=== PATIENT | male | born 1955 | race Caucasian/White ===

== ENCOUNTER → 2018-06-24 | Day surgery (SDC) | payer BC ==
[~2018-06-24] MED LIST: AMLODIPINE BESY10 MG PO; ASPIRIN325 MG PO; BYSTOLIC10 MG PO; FENTANYL CITRATE/PF 100MCG/2 ML INJ ONE; GLUCAGON FOR INJ 1 MG VIAL ONE; HYDROCHLOROTHIA25 MG PO; HYOSCYAMINE SULFATE 0.5 MG/ML INJ ONE; LEVOTHYROXINE; METFORMIN HCL500 MG PO; MIDAZOLAM HCL 5 MG/ML VIAL ONE; MONTELUKAST SOD10 MG PO; PROPOFOL IV EMULSION 10 MG/ML 50 ML VIAL ONE; SIMVASTATIN20 MG PO
--- NOTE | 2018-06-24 23:53 | Operative Report ---
DATE OF PROCEDURE: June 24, 2018 REFERRING PHYSICIAN: Dr. Hiren Chen. PROCEDURES PERFORMED 1. Esophagogastroduodenoscopy with biopsies. 2. Colonoscopy. INDICATION FOR ESOPHAGOGASTRODUODENOSCOPY: Heartburn and indigestion. INDICATIONS FOR COLONOSCOPY: Colorectal cancer screening. MEDICATIONS: Patient was done under MAC. Please see anesthesiologist's note. ESOPHAGOGASTRODUODENOSCOPY: With the patient in the left lateral decubitus position, the flexible fiberoptic Olympus gastroscope was introduced into the esophagus under direct visualization without any difficulty. There was some patchy erythema noted in the distal esophagus. An area of focal nodularity was noted at the GE junction that was biopsied. The scope was then advanced with ease into the stomach traversing a small sliding hiatal hernia. Mucosa overlying the antrum and the body revealed some patchy erythema and low-grade to moderate edema and biopsies were obtained and sent to stain for H. pylori. The pylorus was of normal contour and shape. It was intubated with ease and the scope was advanced all the way to the 2nd portion of the duodenum. The scope was then withdrawn slowly. Mucosa overlying the proximal 2nd portion appeared to be within normal limits. An approximately 6-mm ulcer was noted in the duodenal bulb with heaped up margins without active bleeding or stigmata of recent hemorrhage. The scope was then withdrawn back into the stomach and retroflexed. Mucosa overlying the fundus and cardia appeared to be within normal limits. The scope was then straightened out and was subsequently withdrawn. Patient tolerated the procedure well. IMPRESSION 1. Mild distal esophagitis. 2. Focal nodularity gastroesophageal junction, biopsied. 3. Small sliding hiatal hernia. 4. Gastritis, biopsied. Biopsies sent to stain for H. Pylori. 5. Duodenal bulb ulcer approximately 6 mm in size with heaped up margins without active bleeding or stigmata of recent hemorrhage. PLAN: Follow up histology. Initiate Protonix 40 mg 1 p.o. q.a.m. a.c. COLONOSCOPY: The patient was then turned around, and after adequate lubrication of the anal canal, a flexible fiberoptic Olympus colonoscope was inserted into the rectum with ease and advanced all the way to the cecum. The prep overall of the cecum and the proximal ascending colon was suboptimally prepped with retained stools in the colon. The scope was then withdrawn slowly whatever was visualized having mucosa overlying the cecum and the ascending colon as well as the transverse, descending, sigmoid, and rectum appeared to be within normal limits. The scope was then retroflexed into the distal rectum and small internal hemorrhoids were noted, none of which was actively bleeding. The scope was then straightened out and was subsequently withdrawn. The patient tolerated the procedure well. IMPRESSION 1. Suboptimal prep cecum and proximal ascending colon. 2. Internal hemorrhoids, none actively bleeding. PLAN: Initiate high-fiber, low-fat diet. Initiate high-fiber supplement. The patient might benefit from a followup colonoscopy in 5-10 years. Job#: [id number] RTY cc:Hiren Chen DO
== END | disposition home or self-care (01) ==
LOC: OR 11:50
PROVIDERS: ATTEND Internal Medicine Gastroenterology
DX: K29.70 Gastritis, unspecified, without bleeding (principal); K26.9 Duodenal ulcer, unspecified as acute or chronic, without hemorrhage or perforation; K22.70 Barrett's esophagus without dysplasia; K20.9 Esophagitis, unspecified; K59.00 Constipation, unspecified; K44.9 Diaphragmatic hernia without obstruction or gangrene; K64.8 Other hemorrhoids; I10 Essential (primary) hypertension; E11.9 Type 2 diabetes mellitus without complications; E03.9 Hypothyroidism, unspecified; R71.8 Other abnormality of red blood cells; Z88.0 Allergy status to penicillin; Z79.84 Long term (current) use of oral hypoglycemic drugs; Z01.810 Encounter for preprocedural cardiovascular examination; Z79.82 Long term (current) use of aspirin; Z68.31 Body mass index [BMI] 31.0-31.9, adult
CPT/HCPCS: 36415; 43239; 45378; 82948; 93005; J1610; J1980; J2250; J2704

== ENCOUNTER 2020-06-25 15:49 | Inpatient (IN) | payer MEDICARE ==
[~2020-06-25] VITALS: Ht 167.6 cm; Wt 87.1 kg
[~2020-06-25 15:49] MED LIST changes: -FENTANYL CITRATE/PF 100MCG/2 ML INJ ONE; -GLUCAGON FOR INJ 1 MG VIAL ONE; -HYOSCYAMINE SULFATE 0.5 MG/ML INJ ONE; -MIDAZOLAM HCL 5 MG/ML VIAL ONE; -PROPOFOL IV EMULSION 10 MG/ML 50 ML VIAL ONE
[2020-06-25] MEDS ORDERED: PANTOPRAZOLE 40 MG 10ML VIAL IV STA (16:47)
[2020-06-25] MEDS ORDERED: ASPIRIN81 MG PO (16:50)
[2020-06-25] MEDS ORDERED: LOSARTAN POTASS25 MG PO (16:50)
[2020-06-25] MEDS ORDERED: AMLODIPINE BESYL5 MG PO (16:50)
[2020-06-25] MEDS ORDERED: SYNJARDY 5-1,01 EACH (16:50)
[2020-06-25] MEDS ORDERED: SODIUM CHLORIDE 0.9% 1000ML 1,000 ML IV SCH (17:00)
[2020-06-25] MEDS ORDERED: PANTOPRAZOLE 40 MG 10ML VIAL ONE (17:11)
[2020-06-25 18:12] LABS: BASOPHILS % 0.3 % (0.0-1.0); EOSINOPHILS # (AUTO) 0.6 (0.0-0.4); LYMPHOCYTES # (AUTO) 2.4 (1.0-3.2); LYMPHOCYTES % 17.3 % (18.0-39.1); MEAN CORPUSCULAR HEMOGLOBIN 27.6 pg (28-32); MEAN CORPUSCULAR HGB CONC 31.6 g/dL (31-35); MEAN CORPUSCULAR VOLUME 87.4 fL (81-99); MONOCYTES # (AUTO) 1.1 (0.2-0.8); MONOCYTES % 7.7 % (4.4-11.3); NEUTROPHILS # (AUTO) 9.7 (2.1-6.9); NEUTROPHILS % 69.1 % (38.7-80.0); PLATELET COUNT 238 x10e3/uL (140-360); RED BLOOD COUNT 2.14 x10e6/uL (4.3-5.7); RED CELL DISTRIBUTION WIDTH 15.9 % (11.7-14.4)
[2020-06-25] MEDS ORDERED: SODIUM CHLORIDE 0.9% 1000ML 1,000 ML ONE ×2 (18:17→18:30)
[2020-06-25 18:18] LABS: HEMOGLOBIN 5.9 g/dL (14.0-18.0)
[2020-06-25 18:19] LABS: HEMATOCRIT 18.7 % (38.2-49.6)
[2020-06-25] MEDS ORDERED: SODIUM CHLORIDE FLUSH 10 ML SYR INJ PRN (18:45)
[2020-06-25] MEDS: PANTOPRAZOL 40MG/SOD CHL 0.9% 50 ML IV SCH ×2 (18:45→23:45)
[2020-06-25] MEDS ORDERED: DEXTROSE 50% SYRINGE 50 ML IV PRN (19:15)
[2020-06-25] MEDS ORDERED: HYDRALAZINE HCL 20 MG/ML VIAL IV PRN (19:15)
[2020-06-25] MEDS ORDERED: ONDANSETRON HCL INJ 2MG/ML 2ML 2 MG/ML VIAL IV PRN (19:15)
[2020-06-25] MEDS ORDERED: SODIUM CHLORIDE 0.9% 250ML 250 ML IV ONE (19:15)
[2020-06-25] MEDS ORDERED: ACETAMINOPHEN/CODEINE 300MG - 30MG TAB PO PRN (19:15)
[2020-06-25] MEDS ORDERED: MELATONIN 5 MG TABLET PO PRN (19:15)
[2020-06-25] MEDS: INSULIN LISPRO 100 UNIT/1 ML 3ML VIAL SQ SCH (21:00)
[2020-06-25] MEDS: NEBIVOLOL 10 MG TAB PO SCH (21:31)
[2020-06-25] MEDS: SIMVASTATIN 20 MG TAB PO SCH (21:31)
[2020-06-25 21:45] VITALS: BP 135/67
[2020-06-25 21:52] VITALS: BP 112/62
[2020-06-26 00:15] VITALS: BP 124/77
[2020-06-26 00:36] LABS: INR 1.04; PARTIAL THROMBOPLASTIN TIME 22.1 seconds (23.8-35.5); PROTHROMBIN TIME 14.3 seconds (11.9-14.5)
[2020-06-26 00:44] LABS: CREATINE KINASE 72 IU/L (30-200)
[2020-06-26] MEDS: ACETAMINOPHEN 325 MG TAB PO PRN ×2 (01:38→02:10)
[2020-06-26] MEDS: FUROSEMIDE INJ 10 MG/ML 2 ML VIAL IV PRN ×2 (02:10→05:30)
[2020-06-26] MEDS: SODIUM CHLORIDE 0.9% 1000ML 1,000 ML IV SCH ×3 (05:15→23:59)
[2020-06-26] MEDS: PANTOPRAZOL 40MG/SOD CHL 0.9% 50 ML IV SCH ×4 (05:15→23:59)
[2020-06-26] MEDS: LEVOTHYROXINE SODIUM 50 MCG TAB PO SCH (05:17)
[2020-06-26 05:33] VITALS: BP 99/56
[2020-06-26] MEDS ORDERED: PANTOPRAZOLE SOD 40 MG TABEC PO SCH (06:30)
[2020-06-26 07:56] VITALS: BP 99/55
[2020-06-26 08:52] LABS: HEMATOCRIT 24.5 % (38.2-49.6)
[2020-06-26] MEDS ORDERED: LOSARTAN POTASSIUM 25 MG TAB PO SCH ×2 (09:00)
[2020-06-26] MEDS: AMLODIPINE BESYLATE 5 MG TAB PO SCH (09:00)
[2020-06-26 09:08] VITALS: BP 99/55
[2020-06-26 09:26] LABS: ALANINE AMINOTRANSFERASE 13 IU/L (0-55); ALBUMIN 3.7 g/dL (3.5-5.0); ALBUMIN/GLOBULIN RATIO 1.7 (0.8-2.0); ALKALINE PHOSPHATASE 36 IU/L (40-150); ANION GAP 13.5 mmol/L (8-16); BLOOD UREA NITROGEN 27 mg/dL (7-26); BUN/CREATININE RATIO 26 (6-25); CARBON DIOXIDE 24 mmol/L (22-29); CHLORIDE 105 mmol/L (98-107); CREATININE, SERUM 1.05 mg/dL (0.72-1.25); EST GLOMERULAR FILTRATION RATE > 60 ML/MIN (60-); GLUCOSE 154 mg/dL (74-118); POTASSIUM 3.5 mmol/L (3.5-5.1); SODIUM 139 mmol/L (136-145)
[2020-06-26] MEDS: INSULIN LISPRO 100 UNIT/1 ML 3ML VIAL SQ SCH ×4 (09:45→20:38)
[2020-06-26 10:22] LABS: CREATINE KINASE MB 1.6 ng/mL (0-5.0)
[2020-06-26 11:00] VITALS: BP 110/56
[2020-06-26] MEDS ORDERED: POTASSIUM CHLORIDE 20MEQ/100ML 100 ML IV ONE ×2 (12:15→17:00)
[2020-06-26] MEDS ORDERED: FUROSEMIDE INJ 10 MG/ML 2 ML VIAL IV ONE ×2 (12:30→17:00)
[2020-06-26 13:07] LABS: HEMATOCRIT 23.2 % (38.2-49.6); HEMOGLOBIN 7.6 g/dL (14.0-18.0)
[2020-06-26] MEDS: SUCRALFATE 1 GM TAB PO SCH ×2 (16:33→20:35)
[2020-06-26 18:51] LABS: HEMATOCRIT 24.2 % (38.2-49.6); HEMOGLOBIN 7.7 g/dL (14.0-18.0)
[2020-06-26 19:19] LABS: CREATINE KINASE MB 2.2 ng/mL (0-5.0)
[2020-06-26 20:00] VITALS: BP 112/65
[2020-06-26] MEDS: SIMVASTATIN 20 MG TAB PO SCH (20:35)
[2020-06-26] MEDS: NEBIVOLOL 10 MG TAB PO SCH (20:35)
[2020-06-26 23:53] LABS: % IRON SATURATION 48 % (15-50); IRON 200 ug/dL (65-175); TOTAL IRON BINDING CAPACITY 421 ug/dL (261-478); TRANSFERRIN 301 mg/dL (174-364)
[2020-06-27] VITALS (7 sets, daily range): BP systolic 102–128; BP diastolic 56–73
[2020-06-27] MEDS: PANTOPRAZOL 40MG/SOD CHL 0.9% 50 ML IV SCH ×5 (00:34→20:45)
[2020-06-27] MEDS: LEVOTHYROXINE SODIUM 50 MCG TAB PO SCH (05:14)
[2020-06-27 05:24] LABS: BASOPHILS % 0.3 % (0.0-1.0); EOSINOPHILS # (AUTO) 0.4 (0.0-0.4); EOSINOPHILS % 4.7 % (0.0-6.0); LYMPHOCYTES # (AUTO) 2.3 (1.0-3.2); LYMPHOCYTES % 24.4 % (18.0-39.1); MEAN CORPUSCULAR HEMOGLOBIN 29.5 pg (28-32); MEAN CORPUSCULAR HGB CONC 32.1 g/dL (31-35); MEAN CORPUSCULAR VOLUME 91.9 fL (81-99); MONOCYTES # (AUTO) 0.9 (0.2-0.8); MONOCYTES % 9.9 % (4.4-11.3); NEUTROPHILS # (AUTO) 5.6 (2.1-6.9); NEUTROPHILS % 59.7 % (38.7-80.0); PLATELET COUNT 190 x10e3/uL (140-360); RED BLOOD COUNT 2.34 x10e6/uL (4.3-5.7); RED CELL DISTRIBUTION WIDTH 17.2 % (11.7-14.4)
[2020-06-27 05:37] LABS: HEMOGLOBIN 6.9 g/dL (14.0-18.0)
[2020-06-27 05:38] LABS: HEMATOCRIT 21.5 % (38.2-49.6)
[2020-06-27] MEDS ORDERED: SODIUM CHLORIDE 0.9% 250ML 250 ML IV ONE (05:45)
[2020-06-27 05:52] LABS: ANION GAP 10.5 mmol/L (8-16); BLOOD UREA NITROGEN 21 mg/dL (7-26); BUN/CREATININE RATIO 23 (6-25); CALCIUM 7.7 mg/dL (8.4-10.2); CARBON DIOXIDE 25 mmol/L (22-29); CHLORIDE 109 mmol/L (98-107); CREATININE, SERUM 0.92 mg/dL (0.72-1.25); EST GLOMERULAR FILTRATION RATE > 60 ML/MIN (60-); GLUCOSE 111 mg/dL (74-118); POTASSIUM 3.5 mmol/L (3.5-5.1); SODIUM 141 mmol/L (136-145)
[2020-06-27] MEDS: INSULIN LISPRO 100 UNIT/1 ML 3ML VIAL SQ SCH ×4 (07:30→21:15)
[2020-06-27] MEDS: SUCRALFATE 1 GM TAB PO SCH ×4 (08:00→21:13)
[2020-06-27] MEDS: AMLODIPINE BESYLATE 5 MG TAB PO SCH (09:28)
[2020-06-27] MEDS: IRON SUCROSE 100 MG in SODIUM CHLORIDE 0.9% 100 ML 100 ML IV SCH (10:02)
[2020-06-27] MEDS ORDERED: HEPARIN SOD (PORCINE) 1000 UNIT/ML SDV ONE (15:02)
[2020-06-27] MEDS: NEBIVOLOL 10 MG TAB PO SCH (21:12)
[2020-06-27] MEDS: SIMVASTATIN 20 MG TAB PO SCH (21:13)
[2020-06-28] VITALS (8 sets, daily range): BP systolic 114–130; BP diastolic 61–73
[2020-06-28] MEDS: PANTOPRAZOL 40MG/SOD CHL 0.9% 50 ML IV SCH ×5 (05:19→21:21)
[2020-06-28] MEDS: LEVOTHYROXINE SODIUM 50 MCG TAB PO SCH (05:43)
[2020-06-28 05:53] LABS: BASOPHILS # (AUTO) 0.1 (0.0-0.1); BASOPHILS % 0.5 % (0.0-1.0); EOSINOPHILS # (AUTO) 0.6 (0.0-0.4); EOSINOPHILS % 5.5 % (0.0-6.0); HEMATOCRIT 26.9 % (38.2-49.6); HEMOGLOBIN 8.4 g/dL (14.0-18.0); LYMPHOCYTES # (AUTO) 1.9 (1.0-3.2); LYMPHOCYTES % 17.5 % (18.0-39.1); MEAN CORPUSCULAR HEMOGLOBIN 29.1 pg (28-32); MEAN CORPUSCULAR HGB CONC 31.2 g/dL (31-35); MEAN CORPUSCULAR VOLUME 93.1 fL (81-99); MONOCYTES # (AUTO) 1.1 (0.2-0.8); MONOCYTES % 9.9 % (4.4-11.3); NEUTROPHILS % 65.8 % (38.7-80.0); PLATELET COUNT 181 x10e3/uL (140-360); RED BLOOD COUNT 2.89 x10e6/uL (4.3-5.7); RED CELL DISTRIBUTION WIDTH 18.6 % (11.7-14.4)
[2020-06-28 06:11] LABS: ANION GAP 11.4 mmol/L (8-16); BLOOD UREA NITROGEN 15 mg/dL (7-26); BUN/CREATININE RATIO 15 (6-25); CALCIUM 7.9 mg/dL (8.4-10.2); CARBON DIOXIDE 21 mmol/L (22-29); CHLORIDE 110 mmol/L (98-107); CREATININE, SERUM 0.99 mg/dL (0.72-1.25); EST GLOMERULAR FILTRATION RATE > 60 ML/MIN (60-); GLUCOSE 133 mg/dL (74-118); POTASSIUM 3.4 mmol/L (3.5-5.1); SODIUM 139 mmol/L (136-145)
[2020-06-28] MEDS: INSULIN LISPRO 100 UNIT/1 ML 3ML VIAL SQ SCH ×4 (08:30→21:20)
[2020-06-28] MEDS: SUCRALFATE 1 GM TAB PO SCH ×4 (09:00→21:20)
[2020-06-28] MEDS: AMLODIPINE BESYLATE 5 MG TAB PO SCH (09:00)
[2020-06-28] MEDS: IRON SUCROSE 100 MG in SODIUM CHLORIDE 0.9% 100 ML 100 ML IV SCH (09:00)
[2020-06-28] MEDS ORDERED: POTASSIUM CHLORIDE 20 MEQ TAB CR PO ONE (10:00)
[2020-06-28] MEDS: SIMVASTATIN 20 MG TAB PO SCH (21:20)
[2020-06-28] MEDS: NEBIVOLOL 10 MG TAB PO SCH (21:21)
[2020-06-29] VITALS: BP 108/77
[2020-06-29 00:24] LABS: BASOPHILS % 0.4 % (0.0-1.0); EOSINOPHILS # (AUTO) 0.6 (0.0-0.4); EOSINOPHILS % 7.7 % (0.0-6.0); HEMATOCRIT 26.5 % (38.2-49.6); HEMOGLOBIN 8.3 g/dL (14.0-18.0); LYMPHOCYTES # (AUTO) 1.7 (1.0-3.2); LYMPHOCYTES % 21.9 % (18.0-39.1); MEAN CORPUSCULAR HEMOGLOBIN 29.1 pg (28-32); MEAN CORPUSCULAR HGB CONC 31.3 g/dL (31-35); MONOCYTES # (AUTO) 0.8 (0.2-0.8); MONOCYTES % 10.3 % (4.4-11.3); NEUTROPHILS # (AUTO) 4.5 (2.1-6.9); NEUTROPHILS % 59.2 % (38.7-80.0); PLATELET COUNT 196 x10e3/uL (140-360); RED BLOOD COUNT 2.85 x10e6/uL (4.3-5.7)
[2020-06-29 00:31] LABS: CHOL/HDL RATIO 2.5 (3.9-4.7); PHOSPHORUS 3.1 MG/DL (2.3-4.7)
[2020-06-29 00:36] LABS: ANION GAP 13.4 mmol/L (8-16); BLOOD UREA NITROGEN 11 mg/dL (7-26); BUN/CREATININE RATIO 11 (6-25); CALCIUM 8.4 mg/dL (8.4-10.2); CARBON DIOXIDE 23 mmol/L (22-29); CHLORIDE 109 mmol/L (98-107); CREATININE, SERUM 0.99 mg/dL (0.72-1.25); EST GLOMERULAR FILTRATION RATE > 60 ML/MIN (60-); GLUCOSE 104 mg/dL (74-118); POTASSIUM 3.4 mmol/L (3.5-5.1); SODIUM 142 mmol/L (136-145)
[2020-06-29 00:51] LABS: THYROID STIMULATING HORMONE 4.255 uIU/mL (0.350-4.940)
[2020-06-29] MEDS: PANTOPRAZOL 40MG/SOD CHL 0.9% 50 ML IV SCH ×3 (02:35→12:56)
[2020-06-29 04:00] VITALS: BP 107/57
[2020-06-29 05:19] LABS: BASOPHILS % 0.3 % (0.0-1.0); EOSINOPHILS # (AUTO) 0.6 (0.0-0.4); EOSINOPHILS % 7.3 % (0.0-6.0); HEMATOCRIT 24.3 % (38.2-49.6); HEMOGLOBIN 7.7 g/dL (14.0-18.0); LYMPHOCYTES # (AUTO) 1.6 (1.0-3.2); LYMPHOCYTES % 20.4 % (18.0-39.1); MEAN CORPUSCULAR HEMOGLOBIN 28.8 pg (28-32); MEAN CORPUSCULAR HGB CONC 31.7 g/dL (31-35); MONOCYTES # (AUTO) 0.7 (0.2-0.8); MONOCYTES % 9.3 % (4.4-11.3); NEUTROPHILS % 62.2 % (38.7-80.0); PLATELET COUNT 197 x10e3/uL (140-360); RED BLOOD COUNT 2.67 x10e6/uL (4.3-5.7); RED CELL DISTRIBUTION WIDTH 19.1 % (11.7-14.4)
[2020-06-29 05:40] LABS: ANION GAP 13.6 mmol/L (8-16); BLOOD UREA NITROGEN 11 mg/dL (7-26); BUN/CREATININE RATIO 12 (6-25); CALCIUM 7.9 mg/dL (8.4-10.2); CARBON DIOXIDE 23 mmol/L (22-29); CHLORIDE 109 mmol/L (98-107); CREATININE, SERUM 0.91 mg/dL (0.72-1.25); EST GLOMERULAR FILTRATION RATE > 60 ML/MIN (60-); GLUCOSE 127 mg/dL (74-118); POTASSIUM 3.6 mmol/L (3.5-5.1); SODIUM 142 mmol/L (136-145)
[2020-06-29] MEDS: LEVOTHYROXINE SODIUM 50 MCG TAB PO SCH (05:45)
[2020-06-29 07:55] VITALS: BP 130/62
[2020-06-29] MEDS ORDERED: prevagen PO (08:21)
[2020-06-29 08:27] VITALS: BP 130/62
[2020-06-29] MEDS: SUCRALFATE 1 GM TAB PO SCH ×3 (08:30→16:08)
[2020-06-29] MEDS: AMLODIPINE BESYLATE 5 MG TAB PO SCH (08:30)
[2020-06-29] MEDS: INSULIN LISPRO 100 UNIT/1 ML 3ML VIAL SQ SCH ×3 (08:30→16:09)
[2020-06-29] MEDS ORDERED: PANTOPRAZOLE SO40 MG PO (11:46)
[2020-06-29] MEDS ORDERED: CARAFATE1 GM PO (11:46)
[2020-06-29] MEDS ORDERED: DOCUSATE SODIU100 MG PO (11:47)
[2020-06-29] MEDS ORDERED: ASCORBIC ACID500 M2 PO (11:47)
[2020-06-29] MEDS ORDERED: FERROUS SULFAT325 M1 PO (11:47)
[2020-06-29] MEDS: IRON SUCROSE 100 MG in SODIUM CHLORIDE 0.9% 100 ML 100 ML IV SCH (11:54)
[2020-06-29 11:55] VITALS: BP 123/70
[2020-06-29 16:00] VITALS: BP 117/75
[2020-06-29 16:05] LABS: HEMATOCRIT 26.5 % (38.2-49.6); HEMOGLOBIN 8.4 g/dL (14.0-18.0)
== END 2020-06-29 16:50 | disposition home or self-care (01) | DRG 377 ==
LOC: FSED 16:10 → ERHOLD 18:48 → MED/SURG2 20:36
PROVIDERS: ADMIT Internal Medicine; ATTEND Internal Medicine
PROC: 30233N1 Transfusion of Nonautologous Red Blood Cells into Peripheral Vein, Percutaneous Approach (ICD-10-PCS; 2020-06-25)
PROC: 0DJ08ZZ Inspection of Upper Intestinal Tract, Via Natural or Artificial Opening Endoscopic (ICD-10-PCS; principal; 2020-06-26 13:30)
DX: K26.4 Chronic or unspecified duodenal ulcer with hemorrhage (principal); K20.91 Esophagitis, unspecified with bleeding; D62 Acute posthemorrhagic anemia; E87.2 Acidosis; N39.0 Urinary tract infection, site not specified; K44.9 Diaphragmatic hernia without obstruction or gangrene; E87.6 Hypokalemia; E78.5 Hyperlipidemia, unspecified; E03.9 Hypothyroidism, unspecified; E11.9 Type 2 diabetes mellitus without complications; N21.1 Calculus in urethra; N40.0 Benign prostatic hyperplasia without lower urinary tract symptoms; Z20.822 Contact with and (suspected) exposure to COVID-19; E66.9 Obesity, unspecified; Z68.31 Body mass index [BMI] 31.0-31.9, adult; K29.70 Gastritis, unspecified, without bleeding
CPT/HCPCS: 36415; 43235; 71046; 74176; 78278; 80048; 80053; 80061; 80076; 81003; 82270; 82550; 82553; 82607; 82746; 82948; 83036; 83540; 83735; 83880; 84100; 84443; 84466; 84484; 85014; 85018; 85025; 85045; 85610; 85730; 86850; 86900; 86920; 93005; 99284; A9512; J1644; J1756; J1940; J2405; J3480; J7030; P9016; U0002

== ENCOUNTER → 2020-08-25 | Day surgery (SDC) | payer MEDICARE ==
[2020-08-21 12:23] LABS: BASOPHILS % 0.6 % (0.0-1.0); EOSINOPHILS # (AUTO) 0.6 (0.0-0.4); EOSINOPHILS % 8.9 % (0.0-6.0); HEMATOCRIT 42.4 % (38.2-49.6); HEMOGLOBIN 13.2 g/dL (14.0-18.0); LYMPHOCYTES # (AUTO) 1.2 (1.0-3.2); LYMPHOCYTES % 19.1 % (18.0-39.1); MEAN CORPUSCULAR HGB CONC 31.1 g/dL (31-35); MEAN CORPUSCULAR VOLUME 83.5 fL (81-99); MONOCYTES # (AUTO) 0.6 (0.2-0.8); MONOCYTES % 10.2 % (4.4-11.3); NEUTROPHILS # (AUTO) 3.8 (2.1-6.9); PLATELET COUNT 234 x10e3/uL (140-360); RED BLOOD COUNT 5.08 x10e6/uL (4.3-5.7); RED CELL DISTRIBUTION WIDTH 14.3 % (11.7-14.4)
[~2020-08-25] MED LIST changes: +AMLODIPINE BESYL5 MG PO; +ASCORBIC ACID500 M2 PO; +ASPIRIN81 MG PO; +CARAFATE1 GM PO; +DOCUSATE SODIU100 MG PO; +FERROUS SULFAT325 M1 PO; +FLAXSEED OIL1000 MG PO; +GLUCAGON FOR INJ 1 MG VIAL ONE; -LEVOTHYROXINE; +LEVOTHYROXINE PO; +LOSARTAN POTASS25 MG PO; +PANTOPRAZOLE 40 MG 10ML VIAL ONE; +PANTOPRAZOLE SO40 MG PO; +PROPOFOL IV EMULSION 10 MG/ML 20 ML VIAL ONE; +SIMETHICONE 40 MG/0.6 ML BTL ONE; +SODIUM CHLORIDE 0.9% 50ML 50 ML ONE; +SUCRALFATE1 GM PO; +SYNJARDY 5-1,01 EACH PO; +VITAMIN B-121000 MCG PO; +VITAMIN D3250 MCG PO; +prevagen PO
[2020-08-25 08:40] VITALS: BP 140/77
== END | disposition home or self-care (01) ==
LOC: OR 06:12
PROVIDERS: ATTEND Internal Medicine Gastroenterology
DX: K20.90 Esophagitis, unspecified without bleeding (principal); K26.9 Duodenal ulcer, unspecified as acute or chronic, without hemorrhage or perforation; K29.70 Gastritis, unspecified, without bleeding; K44.9 Diaphragmatic hernia without obstruction or gangrene; D64.9 Anemia, unspecified; G47.33 Obstructive sleep apnea (adult) (pediatric); I10 Essential (primary) hypertension; E11.9 Type 2 diabetes mellitus without complications; Z88.0 Allergy status to penicillin; Z01.812 Encounter for preprocedural laboratory examination; Z20.822 Contact with and (suspected) exposure to COVID-19; Z79.84 Long term (current) use of oral hypoglycemic drugs; Z79.82 Long term (current) use of aspirin
CPT/HCPCS: 36415 ×2; 43239; 82948; 85025; 88305; 88342; 93005; C9113; J1610; J2704; U0002

== ENCOUNTER → 2020-09-01 | Outpatient (CLI) | payer MEDICARE ==
[~2020-09-01] MED LIST changes: -GLUCAGON FOR INJ 1 MG VIAL ONE; +IOPAMIDOL 370 MG/ML 200 ML INFUS..BTL INJ ONE; -PANTOPRAZOLE 40 MG 10ML VIAL ONE; -PROPOFOL IV EMULSION 10 MG/ML 20 ML VIAL ONE; -SIMETHICONE 40 MG/0.6 ML BTL ONE
[2020-09-01 08:41] LABS: BLOOD UREA NITROGEN 17 mg/dL (7-26); BUN/CREATININE RATIO 17 (6-25); CREATININE, SERUM 0.98 mg/dL (0.72-1.25); EST GLOMERULAR FILTRATION RATE > 60 ML/MIN (60-)
== END ==
LOC: CT 07:29
PROVIDERS: ATTEND Internal Medicine Gastroenterology
DX: K20.90 Esophagitis, unspecified without bleeding (principal); K44.9 Diaphragmatic hernia without obstruction or gangrene; K29.70 Gastritis, unspecified, without bleeding; K26.9 Duodenal ulcer, unspecified as acute or chronic, without hemorrhage or perforation
CPT/HCPCS: 36415; 74160; 82565; 84520; Q9967